=== PATIENT | male | born 1990 | race African-American/Black ===

== ENCOUNTER 2020-10-30 13:18 | Emergency (ER) | payer OTHER ==
[2020-10-31 12:07] LABS: SARS-CoV-2 NAA Not Detected (Not Detected)
== END 2020-10-30 15:08 | disposition home or self-care (01) ==
LOC: JVIRT 13:18
DX: Z20.822 Contact with and (suspected) exposure to COVID-19 (principal)
CPT/HCPCS: C9803; Q3014-GT; U0003; U0005

== ENCOUNTER 2020-12-16 14:09 | Emergency (ER) | payer OTHER ==
[2020-12-16 14:15] VITALS: BP 148/75; PULSE 100; TEMP 99.2; BMI 26.9
[2020-12-16 15:25] LABS: EPI CELLS 2 /uL (0-25.1); HYALINE CASTS 0 /uL (0-3.1); URINE APPEARANCE CLEAR; URINE BILIRUBIN 2+ (NEGATIVE); URINE COLOR ORANGE; URINE GLUCOSE (UA) NEGATIVE (NEGATIVE); URINE KETONE NEGATIVE (NEGATIVE); URINE LEUK ESTERASE 2+ (NEGATIVE); URINE NITRITE POSITIVE (NEGATIVE); URINE PROTEIN 1+ (NEGATIVE); URINE RBC 34 /uL (0-23.9); URINE WBC 14 /uL (0-25.8)
[2020-12-16 16:15] LABS: SYPHILIS W/ RPR CONF NON-REACTIVE (NONREACTIVE)
[2020-12-16 16:43] LABS: HIV INTERPRETATION NEGATIVE (NEGATIVE)
== END 2020-12-16 16:17 | disposition home or self-care (01) ==
LOC: JERFT 14:09 → JER 14:09 → JERFT 16:17
DX: A60.00 Herpesviral infection of urogenital system, unspecified (principal)
CPT/HCPCS: 36415; 81003; 86694; 86695; 86696; 86780; 87086; 87389; 87491; 87591; 99283-25

== ENCOUNTER 2021-09-13 19:23 | Emergency (ER) | payer OTHER ==
[2021-09-13 19:30] VITALS: BP 132/70; PULSE 71; TEMP 98.1
[2021-09-13] MEDS ORDERED: KETOROLAC TROMETHAMINE 30 MG/1 ML VIAL IM ONE (20:12)
[2021-09-13] MEDS ORDERED: METOCLOPRAMIDE HCL 10 MG TABLET (FP) PO ONE ×2 (20:13→20:41)
[2021-09-13] MEDS ORDERED: KETOROLAC TROMETHAMINE 30 MG/1 ML VIAL ONE (20:41)
== END 2021-09-13 22:26 | disposition home or self-care (01) ==
LOC: JER 19:23
PROC: 3E0233Z Introduction of Anti-inflammatory into Muscle, Percutaneous Approach (ICD-10-PCS; principal; 2021-09-13)
DX: G43.909 Migraine, unspecified, not intractable, without status migrainosus (principal)
CPT/HCPCS: 70450-TC; 99284-25

== ENCOUNTER 2021-09-29 13:33 | Emergency (ER) | payer OTHER ==
[2021-09-29 14:09] VITALS: BP 142/83; PULSE 100; TEMP 98.5; BMI 28.2
== END 2021-09-29 14:40 | disposition home or self-care (01) ==
LOC: JER 13:33
DX: A60.02 Herpesviral infection of other male genital organs (principal)
CPT/HCPCS: 99281-25

== ENCOUNTER 2021-10-24 18:08 | Emergency (ER) | payer OTHER ==
[2021-10-24 18:20] VITALS: BP 113/69; PULSE 86; TEMP 98.6; BMI 28.7
[2021-10-24] MEDS ORDERED: SODIUM CHLORIDE 0.9% 500 ML INFUS.BAG IV ONE (22:04)
[2021-10-24 22:42] LABS: BASO % 0.7 % (0-2.0); EOS % 0.7 % (0-4.5); HEMATOCRIT 40.8 % (35.4-49); HEMOGLOBIN 14.3 GM/dL (11.7-16.9); LYMPH % 36.7 % (8-40); MCH 31.1 pg (25.7-33.7); MEAN CELL VOLUME 88.9 fl (80-96); MEAN PLT VOLUME 9.6 fl (7.5-11.1); NEUT % 52.9 % (42.8-82.8); PLATELET COUNT 164 10^3/uL (134-434); RBC 4.59 M/mm3 (4.00-5.60); RDW 14.5 % (11.9-15.9); WHITE BLOOD COUNT 7.5 K/mm3 (4.0-10.0)
[2021-10-24 23:11] LABS: CALCIUM 8.7 mg/dL (8.5-10.1)
[2021-10-24 23:12] LABS: ALBUMIN 3.6 g/dl (3.4-5.0)
[2021-10-24 23:16] LABS: BILIRUBIN,TOTAL 0.4 mg/dL (0.2-1)
== END 2021-10-25 03:05 | disposition home or self-care (01) ==
LOC: JER 18:08 → JERFT 18:08 → JER 10-25 03:05
DX: R00.2 Palpitations (principal); F43.0 Acute stress reaction
CPT/HCPCS: 36415; 71046-TC-FY; 80053; 82962; 84484; 85025; 93005; 93010; 99285-25

== ENCOUNTER 2021-11-30 19:22 | Emergency (ER) | payer OTHER ==
[2021-11-30 20:07] VITALS: BP 119/70; PULSE 84; TEMP 99.8
[2021-11-30 20:14] LABS: HEMOGLOBIN 14.5 G/dL (11.7-16.9); MCH 31.4 pg (25.7-33.7); MCHC 35.3 g/dl (32.0-35.9); MEAN CELL VOLUME 88.9 fl (80-96); MEAN PLT VOLUME 9.4 fl (7.5-11.1); PLATELET COUNT 185.9 10^3/uL (134-434); RBC 4.61 10^6/uL (4.00-5.60); RDW 14.7 % (11.9-15.9); WHITE BLOOD COUNT 6.2 10^3/uL (4.0-10.8)
[2021-11-30 20:35] LABS: ALBUMIN 4.2 g/dl (3.4-5.0); BILIRUBIN,TOTAL 0.8 mg/dl (0.2-1); CALCIUM 9.5 mg/dl (8.5-10); TOT PROT 7.3 g/dl (6.4-8.2)
[2021-11-30] MEDS ORDERED: ALPRAZolam 1 MG TABLET PO PRN (21:17)
[2021-11-30] MEDS ORDERED: ALPRAZolam 0.25 MG TABLET ONE (21:17)
== END 2021-11-30 21:38 | disposition home or self-care (01) ==
LOC: FER 19:22
DX: F41.0 Panic disorder [episodic paroxysmal anxiety] (principal)
CPT/HCPCS: 36415; 71045-TC-FY; 80053; 82550; 82553; 84484; 85025; 93005; 99285-25

== ENCOUNTER 2021-12-07 18:27 | Emergency (ER) | payer OTHER ==
[2021-12-07 18:36] VITALS: BP 137/92; PULSE 89; TEMP 97.8; BMI 28.1
[2021-12-07] MEDS ORDERED: valACYclovir HCL 1000 MG TABLET PO ONE (19:33)
[2021-12-07] MEDS ORDERED: valACYclovir HCL 500 MG TABLET (FP) ONE (19:35)
== END 2021-12-07 19:40 | disposition home or self-care (01) ==
LOC: FER 18:27 → SUPCPDRO 18:27 → FER 19:40
DX: A60.01 Herpesviral infection of penis (principal)
CPT/HCPCS: 99283-25

== ENCOUNTER 2022-05-25 15:12 | Emergency (ER) | payer OTHER ==
[2022-05-25 15:25] VITALS: BP 134/89; PULSE 95; RESP 20; TEMP 98.7; BMI 36.8
[2022-05-25] MEDS ORDERED: ACETAMINOPHEN 500 MG TABLET (FP) PO ONE (15:29)
[2022-05-25] MEDS ORDERED: ACETAMINOPHEN 325 MG TABLET (FP) ONE ×2 (15:34→15:36)
== END 2022-05-25 15:56 | disposition home or self-care (01) ==
LOC: FER 15:12
DX: J06.9 Acute upper respiratory infection, unspecified (principal)
CPT/HCPCS: 0241U-QW; 99283-25

== ENCOUNTER 2022-07-20 15:10 | Emergency (ER) | payer OTHER ==
[2022-07-20 15:29] VITALS: BP 129/77; PULSE 90; RESP 18; TEMP 98.9; BMI 29.9
== END 2022-07-20 16:02 | disposition home or self-care (01) ==
LOC: FER 15:10
DX: Z48.00 Encounter for change or removal of nonsurgical wound dressing (principal)
CPT/HCPCS: 99281-25

== ENCOUNTER 2022-11-04 19:33 | Emergency (ER) | payer OTHER ==
[2022-11-04 19:40] VITALS: BP 149/90; PULSE 100; RESP 16; TEMP 98.9; BMI 30.6
[2022-11-04] MEDS ORDERED: LIDOCAINE 5% TOPICAL PATCH TP ONE (20:35)
[2022-11-04] MEDS ORDERED: KETOROLAC TROMETHAMINE 30 MG/1 ML VIAL IM ONE (20:35)
[2022-11-04] MEDS ORDERED: CYCLOBENZAPRINE HCL 10 MG TABLET (FP) PO ONE (20:35)
[2022-11-04] MEDS ORDERED: ACETAMINOPHEN 500 MG TABLET (FP) PO ONE (20:35)
[2022-11-04] MEDS ORDERED: LIDOCAINE 5% TOPICAL PATCH ONE (20:40)
[2022-11-04] MEDS ORDERED: KETOROLAC TROMETHAMINE 30 MG/1 ML VIAL ONE (20:40)
[2022-11-04] MEDS ORDERED: ACETAMINOPHEN 500 MG TABLET (FP) ONE (20:40)
[2022-11-04] MEDS ORDERED: CYCLOBENZAPRINE HCL 10 MG TABLET (FP) ONE (20:40)
[2022-11-04] MEDS ORDERED: LIDOCAINE PATCH REMOVAL MC ONE (22:00)
== END 2022-11-04 22:42 | disposition home or self-care (01) ==
LOC: JERFT 19:33
PROC: 3E0233Z Introduction of Anti-inflammatory into Muscle, Percutaneous Approach (ICD-10-PCS; principal; 2022-11-04)
DX: M25.512 Pain in left shoulder (principal); M54.6 Pain in thoracic spine; V49.40XA Driver injured in collision with unspecified motor vehicles in traffic accident, initial encounter; Y92.410 Unspecified street and highway as the place of occurrence of the external cause
CPT/HCPCS: 71046-TC-FY; 72100-TC-FY; 72125-TC; 99284-25

== ENCOUNTER 2023-05-03 14:48 | Emergency (ER) | payer OTHER ==
[2023-05-03] MEDS ORDERED: ACETAMINOPHEN 500 MG TABLET (FP) PO ONE (14:56)
[2023-05-03 15:01] VITALS: BP 135/89; PULSE 82; RESP 18; TEMP 99.3; BMI 29.3
[2023-05-03] MEDS ORDERED: ACETAMINOPHEN 500 MG TABLET (FP) ONE (15:13)
== END 2023-05-03 15:49 | disposition home or self-care (01) ==
LOC: FER 14:48
DX: J06.9 Acute upper respiratory infection, unspecified (principal); B34.9 Viral infection, unspecified; R05.9 Cough, unspecified; R53.83 Other fatigue; M79.10 Myalgia, unspecified site; R51.9 Headache, unspecified; R68.83 Chills (without fever); Z20.822 Contact with and (suspected) exposure to COVID-19
CPT/HCPCS: 0241U-QW; 99283-25